=== PATIENT | female | born 1960 | race Caucasian/White ===

== ENCOUNTER 2016-05-26 | Outpatient (CLI) | payer MEDICAID | END 2016-05-26 14:00 | disposition home or self-care (01) | DX: R07.89 Other chest pain (principal) ==

== ENCOUNTER 2016-05-26 10:29 | Outpatient (CLI) | payer MEDICAID, OTHER | END 2016-05-26 10:30 | disposition home or self-care (01) | DX: R07.89 Other chest pain (principal) ==

== ENCOUNTER 2016-05-26 14:23 | Outpatient (CLI) | payer MEDICAID | END 2016-05-26 14:24 | disposition home or self-care (01) | DX: R07.89 Other chest pain (principal) ==

== ENCOUNTER 2016-05-29 10:30 | Outpatient (CLI) | payer MEDICAID | END 2016-05-29 10:31 | disposition home or self-care (01) | DX: R07.89 Other chest pain (principal) ==

== ENCOUNTER 2016-06-04 12:15 | Emergency (ER) | payer MEDICAID ==
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
[2016-06-04 13:22] LABS: BASOPHILS # (AUTO) 0.1 10^3/uL (0.0-0.1); BASOPHILS % (AUTO) 1.3 %; EOSINOPHILS # (AUTO) 0.1 10^3/uL (0.0-0.7); EOSINOPHILS % (AUTO) 0.7 %; HCT - HEMATOCRIT 41.1 % (37.0-47.0); HGB - HEMOGLOBIN 14.2 g/dL (12.0-16.0); LYMPHOCYTES # (AUTO) 1.8 10^3/uL (1.5-3.5); LYMPHOCYTES % (AUTO) 25.4 %; MEAN CORPUSCULAR HEMOGLOBIN 33.1 pg (27.0-31.0); MEAN CORPUSCULAR HGB CONC 34.6 g/dL (32.0-36.0); MEAN CORPUSCULAR VOLUME 95.7 fL (81.0-99.0); MEAN PLATELET VOLUME 7.6 fL (7.9-10.8); MONOCYTES # (AUTO) 0.4 10^3/uL (0.0-1.0); MONOCYTES % (AUTO) 6.1 %; NEUTROPHILS # (AUTO) 4.7 10^3/uL (1.5-6.6); NEUTROPHILS % (AUTO) 66.5 %; RED CELL DISTRIBUTION WIDTH 12.1 % (12.0-15.0); UNCORRECTED WHITE BLOOD COUNT 7.1 x10^3/uL; WHITE BLOOD COUNT 7.1 x10^3/uL (4.8-10.8)
--- NOTE | 2016-06-04 13:44 | XRAY Preliminary Report ---
Exam: XR Chest 2 View PA/LAT IMPRESSION: No evidence of active cardiopulmonary process. [facility] SITE ID: [id number]
--- NOTE | 2016-06-04 13:47 | XRAY Report ---
EXAM: CHEST RADIOGRAPHY EXAM DATE: 06/04/2016 01:28 PM. CLINICAL HISTORY: Chest pain. COMPARISON: None. TECHNIQUE: 2 views. FINDINGS: Lungs/Pleura: No focal opacities evident. No pleural effusion. No pneumothorax. Normal volumes. Mediastinum: Heart and mediastinal contours are unremarkable. Other: None. IMPRESSION: No evidence of active cardiopulmonary process. [facility] Referring Provider Line: [phone] SITE ID: [id number]
[2016-06-04] MEDS ORDERED: DEXAMETHASONE 10 MG/ML VIAL PO STA (14:07)
[2016-06-04] MEDS ORDERED: CHERRY SYRUP 10 ML UDC PO ONE (14:08)
[2016-06-04] MEDS ORDERED: DEXAMETHASONE 10 MG/ML VIAL ONE (14:08)
[2016-06-04 14:31] LABS: ALBUMIN/GLOBULIN RATIO 1.5 (1.0-2.2); BILIRUBIN,TOTAL 0.5 mg/dL (0.2-1.0); CREATININE 0.9 mg/dL (0.4-1.0); POTASSIUM 3.8 mmol/L (3.5-5.0); TOTAL PROTEIN 7.4 g/dL (6.7-8.2)
[2016-06-04 14:53] VITALS: BP 124/64
== END 2016-06-04 15:04 | disposition home or self-care (01) ==
LOC: ED 12:15
DX: M94.0 Chondrocostal junction syndrome [Tietze] (principal); H66.001 Acute suppurative otitis media without spontaneous rupture of ear drum, right ear
CPT/HCPCS: 36415; 71020; 80053; 83690; 84484; 85025; 93005; 93010; 99282; 99284; A9270